=== PATIENT | male | born 1970 | race Caucasian/White ===

== ENCOUNTER 2020-10-02 11:40 | Emergency (ER) | payer OTHER ==
[~2020-10-02] VITALS: Ht 170.2 cm; Wt 91.6 kg
[2020-10-02] MEDS ORDERED: PROAIR HFA8.5 GM INH (12:02)
== END 2020-10-02 12:45 | disposition home or self-care (01) ==
LOC: M.ERS 11:40
DX: R06.00 Dyspnea, unspecified (principal); Z79.899 Other long term (current) drug therapy; Z20.828 Contact with and (suspected) exposure to other viral communicable diseases